=== PATIENT | male | born 1970 ===

== ENCOUNTER 2017-08-26 08:54 | Emergency (ER) | payer OTHER ==
[2017-08-26] MEDS ORDERED: cefTRIAXone IV 1 gm in Dextros 50 ML IV ONE (09:45)
[2017-08-26] MEDS ORDERED: Tmp-Smz 800 mg-160 mg DS Tab PO STA (09:47)
[2017-08-26] MEDS ORDERED: cefTRIAXone IV 1 gm in Dextros 50 ML IVPB ONE (10:05)
[2017-08-26 10:17] LABS: BASO # 0.1 K/uL (0.0-0.2); BASO % 0.6 % (0.0-2.0); EOS # 0.1 K/uL (0.0-0.7); HEMOGLOBIN 15.2 g/dL (12.0-18.0); LYMPH # 1.2 K/uL (1.0-4.3); LYMPH % 12.1 % (20.0-40.0); MEAN CELL VOLUME 83.7 fL (80.0-94.0); MEAN CORPUSCULAR HEMOGLOBIN 29.6 pg (27.0-31.0); MEAN CORPUSCULAR HGB CONC 35.4 g/dL (33.0-37.0); MEAN PLATELET VOLUME 7.7 fL (7.2-11.7); MONO # 1.1 K/uL (0.0-0.8); MONO % 10.2 % (0.0-10.0); NEUT # 7.9 K/uL (1.8-7.0); NEUT % 76.1 % (50.0-75.0); NRBC % 0.1 % (0.0-2.0); RBC 5.15 Mil/uL (4.40-5.90); RED CELL DISTRIBUTION WIDTH 13.5 % (11.5-14.5); WHITE BLOOD COUNT 10.3 K/uL (4.8-10.8)
[2017-08-26] MEDS ORDERED: Tmp-Smz 800 mg-160 mg DS Tab ONE (10:28)
[2017-08-26 10:37] LABS: ALB/GLOB RATIO 1.1 (1.0-2.1); ALBUMIN 4.3 g/dL (3.5-5.0); ALT/SGPT 30 U/L (21-72); AST/SGOT 32 U/L (17-59); BLOOD UREA NITROGEN 15 mg/dL (9-20); CALCIUM 9.1 mg/dl (8.6-10.4); GFR AFRICAN-AMERICAN > 60; GFR NON-AFRICAN AMERICAN > 60
[2017-08-26] MEDS ORDERED: Lidocaine 1% w Epi 1:100,000 Inj INJ ONE (10:38)
[2017-08-26] MEDS ORDERED: Lidocaine 2% MPF (5 ml) Inj ONE (10:41)
[2017-08-26] MEDS ORDERED: Bacitracin 500 Units/gm Oint Foilpak UD TOP ONE (11:07)
[2017-08-26] MEDS ORDERED: Bacitracin 500 Units/gm Oint Foilpak UD ONE (11:09)
--- NOTE | 2017-08-26 11:11 | C.PDOC ---
History Of Present Illness 46yo male, presents to ER with complaints of swelling and redness to his right lower leg for the past 4 days. Patient states the swelling might have been due to an ingrown hair. He had a similar episode 2 years ago as well when he had I& D and was discharged with antibiotics. He noticed minimal discharge from the wound yesterday. Patient denies any fever, bug bite, trauma, or weakness in his lower extremity. Time Seen by Provider: 08/26/17 09:21 Chief Complaint (Nursing): Abnormal Skin Integrity History Per: Patient History/Exam Limitations: no limitations Onset/Duration Of Symptoms: Days Current Symptoms Are (Timing): Still Present Location Of Injury: Right: Leg (lower) Quality Of Symptoms: Painful, Swollen Additional History Per: Patient Past Medical History Reviewed: Historical Data, Nursing Documentation, Vital Signs Vital Signs: Last Vital Signs Temp 99.5 F 08/26/17 11:24 Pulse 86 08/26/17 11:24 Resp 18 08/26/17 11:24 BP 137/75 08/26/17 11:24 Pulse Ox 98 08/26/17 13:26 - Medical History PMH: No Chronic Diseases Surgical History: No Surg Hx Family History: States: Unknown Family Hx - Social History Hx Alcohol Use: Yes Hx Substance Use: No - Immunization History Hx Tetanus Toxoid Vaccination: No Hx Influenza Vaccination: No Hx Pneumococcal Vaccination: No Review Of Systems Except As Marked, All Systems Reviewed And Found Negative. Constitutional: Negative for: Fever, Chills Musculoskeletal: Positive for: Other (swelling and redness to right lower leg) Physical Exam - Physical Exam Appears: Non-toxic, No Acute Distress Skin: Warm, Dry Head: Atraumatic, Normacephalic Eye(s): bilateral: Normal Inspection, EOMI Neck: Normal ROM, Supple Chest: Symmetrical Respiratory: No Accessory Muscle Use Extremity: Normal ROM, No Pedal Edema, No Calf Tenderness, No Deformity, Other ( 8cm area of erythema with central open wound on right lower leg, no streaking) Neurological/Psych: Oriented x3, Normal Motor, Normal Sensation ED Course And Treatment - Laboratory Results Result Diagrams: 08/26/17 10:09 08/26/17 10:09 O2 Sat by Pulse Oximetry: 98 (RA) Pulse Ox Interpretation: Normal Progress Note: Labs ordered, patient given Toradol IV for pain relief. Wound incised and drained, cultures sent. Patient given antibiotics in ER and instructed to complete the antibiotics course as prescribed. Wound cleaned, bacitracin applied and sterile dressing applied. Patient was instructed to return to ER in 2 days for wound check or sooner if symtpoms worsen. - Incision & Drainage Of Abscess Anesthesia: Lidocaine 1% Used During Procedure: Continuous Pulse Oximetry Prep Used: Sterile Water, Betadine Procedure: Incised W/Scalpel Blade#: (11), Drained Pus, Irrigated Cavity W/ Saline, Probed To Break Up Loculations, Cultures Obtained And Sent To Lab Disposition - Disposition Disposition: HOME/ ROUTINE Disposition Time: 11:07 Condition: STABLE Additional Instructions: Follow up with your primary medical doctor or clinic in 2-5 days for further evaluation. Take medications as prescribed. Return to the emergency department at any time if symptoms persist or worsen. Prescriptions: Cephalexin [cephalexin] 500 mg PO QID 7 Days cap Mupirocin 2% Ointment [Bactroban Ointment] 1 appl TP TID #1 tube Sulfamethoxazole/Trimethoprim [Bactrim DS 800 mg-160 mg] 1 tab PO BID #14 tab Instructions: Cellulitis (Skin Infection), Adult (DC) Forms: [employer] (Peruvian), Work Excuse - Clinical Impression Clinical Impression: Cellulitis, Abscess - PA / [employer] / Resident Statement MD/DO has reviewed & agrees with the documentation as recorded. - Scribe Statement The provider has reviewed the documentation as recorded by the Scribe (Barbra Cannon) Provider Attestation: All medical record entries made by the Scribe were at my direction and personally dictated by me. I have reviewed the chart and agree that the record accurately reflects my personal performance of the history, physical exam, medical decision making, and the department course for this patient. I have also personally directed, reviewed, and agree with the discharge instructions and disposition.
[2017-08-26 11:25] VITALS: BP 137/75; PULSE 86; RESP 18; TEMP 99.5
[2017-08-26 13:10] VITALS: O2SAT 98
== END 2017-08-26 11:26 | disposition home or self-care (01) ==
LOC: C.ER 08:54
DX: L03.115 Cellulitis of right lower limb (principal); L02.415 Cutaneous abscess of right lower limb
CPT/HCPCS: 10060; 80053; 85025; 87070; 87181; 96365; 96375; 99285; J0696; J1885

== ENCOUNTER 2017-10-08 13:20 | Emergency (ER) | payer SELFPAY ==
[2017-10-08 13:35] VITALS: BP 127/88; PULSE 72; RESP 16; TEMP 98; O2SAT 98
[2017-10-08] MEDS ORDERED: Erythromycin 0.5% Ophth Oint 1 APPLIC/3.5 G OD STA (13:52)
--- NOTE | 2017-10-08 13:55 | C.PDOC ---
History Of Present Illness 46-year-old male, presents to the emergency department with complaints of six- day duration of right eye discomfort. States he woke up with right eye redness and discomfort. He denies any swelling or changes in vision. Time Seen by Provider: 10/08/17 13:33 Chief Complaint (Nursing): Eye Problem History Per: Patient History/Exam Limitations: no limitations Current Symptoms Are (Timing): Still Present Past Medical History Reviewed: Historical Data, Nursing Documentation, Vital Signs Vital Signs: Last Vital Signs Temp 98 F 10/08/17 13:33 Pulse 72 10/08/17 13:33 Resp 16 10/08/17 13:33 BP 127/88 10/08/17 13:33 Pulse Ox 98 10/08/17 14:17 Family History: States: No Known Family Hx - Social History Hx Alcohol Use: Yes Hx Substance Use: No - Immunization History Hx Tetanus Toxoid Vaccination: No Hx Influenza Vaccination: No Hx Pneumococcal Vaccination: No Review Of Systems Constitutional: Negative for: Fever, Chills Eyes: Positive for: Redness. Negative for: Pain, Vision Change, Conjunctivae Inflammation Cardiovascular: Negative for: Chest Pain Respiratory: Negative for: Shortness of Breath Gastrointestinal: Negative for: Vomiting Skin: Negative for: Rash Physical Exam - Physical Exam Appears: Non-toxic, No Acute Distress Skin: Normal Color, Warm, Dry, No Rash Head: Atraumatic, Normacephalic Eye(s): bilateral: PERRL, EOMI, right: Other (subconjunctival hemorrhage) Nose: Normal Oral Mucosa: Moist Lips: Normal Appearing Neck: Normal ROM Chest: Symmetrical Respiratory: No Decreased Breath Sounds, No Accessory Muscle Use Extremity: Normal ROM, No Deformity Neurological/Psych: Oriented x3, Normal Speech ED Course And Treatment O2 Sat by Pulse Oximetry: 98 (RA) Pulse Ox Interpretation: Normal Medical Decision Making Medical Decision Making: (-)Fluorescein uptake See nurse note for visual acuity. Disposition Counseled Patient/Family Regarding: Studies Performed, Diagnosis - Disposition Referrals: Carlos Enrique Pina [Staff Provider] - Disposition: HOME/ ROUTINE Disposition Time: 13:53 Condition: STABLE Additional Instructions: follow up with Dr. Pina within 2 days call today to make an appointment take medication as prescribed return to hospital if symptoms worsens or progress Prescriptions: Erythromycin 0.5% [Ilytocin] 3.5 gm OD QID #1 tube Instructions: Subconjunctival Hemorrhage Forms: [facility] (Citizen Of [place]), General Discharge Instructions - Clinical Impression Clinical Impression: Subconjunctival hemorrhage - Scribe Statement The provider has reviewed the documentation as recorded by the Scribe (Maeve Castle) All medical record entries made by the Scribe were at my direction and personally dictated by me. I have reviewed the chart and agree that the record accurately reflects my personal performance of the history, physical exam, medical decision making, and the department course for this patient. I have also personally directed, reviewed, and agree with the discharge instructions and disposition.
[2017-10-08] MEDS ORDERED: Erythromycin 0.5% Ophth Oint 1 APPLIC/3.5 G ONE (13:57)
== END 2017-10-08 14:04 | disposition home or self-care (01) ==
LOC: C.ER 13:20
DX: H11.31 Conjunctival hemorrhage, right eye (principal)

== ENCOUNTER 2018-01-27 08:44 | Emergency (ER) | payer OTHER ==
[2018-01-27 08:56] VITALS: BMI 35.6
[2018-01-27 09:03] VITALS: BP 138/89; PULSE 84; RESP 18; TEMP 98.8; O2SAT 98
--- NOTE | 2018-01-27 09:07 | C.PDOC ---
History Of Present Illness 47 y/o male with PMH of recurrent leg abscesses, MRSA presents to the ED c/o left lower leg redness and pain x 4 days. Pt states he tried to squeeze the area but was unable to drain any fluid. States similar to prior abscesses, thinks he may have had an ingrown hair before the redness began. Denies fevers, chills, headache, N/V, numbness, paresthesias, ankle or knee pain. <Sadaf Marcus - Last Filed: 01/27/18 17:33> <Ekaterina Gallardo DO - Last Filed: 01/27/18 09:40> History Per: Patient History/Exam Limitations: no limitations Onset/Duration Of Symptoms: Days Current Symptoms Are (Timing): Still Present Severity: Mild Recent travel outside of the [place]: No <Sadaf Marcus - Last Filed: 01/27/18 17:33> Chief Complaint (Nursing): Lower Extremity Problem/Injury Past Medical History Vital Signs: Last Vital Signs Temp 98.8 F 01/27/18 08:57 Pulse 84 01/27/18 08:57 Resp 18 01/27/18 08:57 BP 138/89 01/27/18 08:57 Pulse Ox 98 01/27/18 09:35 <Ekaterina Gallardo DO - Last Filed: 01/27/18 09:40> Reviewed: Historical Data, Nursing Documentation, Vital Signs Vital Signs: Last Vital Signs Temp 98.8 F 01/27/18 08:57 Pulse 84 01/27/18 08:57 Resp 18 01/27/18 08:57 BP 138/89 01/27/18 08:57 Pulse Ox 98 01/27/18 08:57 - Medical History Other PMH: Abscesses Family History: States: Unknown Family Hx - Social History Hx Alcohol Use: Yes Hx Substance Use: No - Immunization History Hx Tetanus Toxoid Vaccination: No Hx Influenza Vaccination: No Hx Pneumococcal Vaccination: No <Sadaf Marcus - Last Filed: 01/27/18 17:33> Review Of Systems Except As Marked, All Systems Reviewed And Found Negative. Constitutional: Negative for: Fever, Chills Eyes: Negative for: Vision Change Cardiovascular: Negative for: Chest Pain, Palpitations, Light Headedness Respiratory: Negative for: Cough, Shortness of Breath Gastrointestinal: Negative for: Nausea, Vomiting, Abdominal Pain Genitourinary: Negative for: Dysuria, Frequency Musculoskeletal: Positive for: Leg Pain (left) Skin: Positive for: Other (swelling, redness to left lower leg). Negative for: Rash Neurological: Negative for: Weakness, Numbness, Headache, Dizziness <Sadaf Marcus - Last Filed: 01/27/18 17:33> Physical Exam - Physical Exam Appears: Well, Non-toxic, No Acute Distress Skin: Warm, Dry, Other (5cm x 4cm area of erythema over left lateral lower leg with [id number] area of fluctuance with surrounding induration; mild associated swelling) Head: Atraumatic, Normacephalic, No Tenderness Eye(s): bilateral: Normal Inspection, PERRL, EOMI Ear(s): Bilateral: Normal Nose: Normal Oral Mucosa: Moist Throat: Normal Neck: Normal, Normal ROM Cardiovascular: Rhythm Regular Respiratory: Normal Breath Sounds Gastrointestinal/Abdominal: Normal Exam Back: Normal Inspection Extremity: Normal ROM, Tenderness (left lateral lower leg), No Calf Tenderness, Capillary Refill (<2s), No Deformity, Swelling (left lateral lower leg; mild), Other (Full strength, sensation) Extremity: Left: Other (left: 5cm area of erythema ), Right: Normal Color And Temperature, Bilateral: Atraumatic, Normal ROM Pulses: Left Dorsalis Pedis: Normal, Right Dorsalis Pedis: Normal Neurological/Psych: Oriented x3, Normal Speech, Normal Cognition, Normal Cranial Nerves, Normal Motor, Normal Sensation Gait: Steady <Sadaf Marcus - Last Filed: 01/27/18 17:33> ED Course And Treatment O2 Sat by Pulse Oximetry: 98 <Sadaf Marcus - Last Filed: 01/27/18 17:33> - Incision & Drainage Of Abscess Anesthesia: Lidocaine 1% Prep Used: Sterile Water (chlorhexadine) Procedure: Incised W/Scalpel Blade#: (11), Drained Pus, Cultures Obtained And Sent To Lab (patient tolerated procedure well) <Ekaterina Gallardo DO - Last Filed: 01/27/18 09:40> Medical Decision Making Medical Decision Making: Initial Plan: * I&D * wound culture I&D performed by resident, Dr. Ekaterina Olivera, see procedure note; supervised by me. Pt tolerated the procedure well without complication. Wound covered with bacitracin and sterile dressing. Plan of care discussed with pt, who is stable for discharge home. A&Ox3, ambulating with steady gait. Strict instructions given regarding prescriptions, importance of followup and signs to return to ED. Impression: Cellulitis with Abscess Plan: Return in 2 days for wound check Bactrim, Keflex, Mupirocin Ointment Wound Care Return to ER sooner for new/worsening symptoms <Sadaf Marcus - Last Filed: 01/27/18 17:33> Disposition <Ekaterina Gallardo DO - Last Filed: 01/27/18 09:40> - Disposition Disposition Time: 09:14 <Sadaf Marcus - Last Filed: 01/27/18 17:33> - Disposition Referrals: [facility] [Outside] Disposition: HOME/ ROUTINE Condition: IMPROVED Additional Instructions: Retorno en 2 chapman para revisin de herida. Mantenga el marli limpia, seca y cubierta. Aplicar la pomada de mupirocina morenita vez al da. [place] los antibiticos segn lo prescrito; keflex cada 6 horas, bactrim cada 12 horas Regrese a la zachary de emergencias para cualquier sntoma nuevo / que empeora Prescriptions: Cephalexin [Keflex] 500 mg PO QID 7 Days #28 capsule Mupirocin 2% Ointment [Bactroban Ointment] 1 applic TD DAILY #1 tube Sulfamethoxazole/Trimethoprim [Bactrim DS 800 mg-160 mg] 1 tab PO Q12H #14 tab Instructions: Skin Abscess, Cellulitis (Skin Infection), Adult (DC) Forms: Gen Discharge Inst Angolan, [employer] (Angolan), Work Excuse Print Language: UPPER SORBIAN - Clinical Impression Clinical Impression: Cellulitis, Abscess
[2018-01-27] MEDS ORDERED: Lidocaine 1% (10 ml) Inj INFIL ONE (09:29)
[2018-01-27] MEDS ORDERED: Lidocaine Hydrochloride 5 ML INJ ONE (09:32)
[2018-01-27] MEDS ORDERED: Bacitracin Ointment 30 GM TUBE TOP STA (09:42)
[2018-01-27] MEDS ORDERED: Tmp-Smz 800 mg-160 mg DS Tab PO SCH (09:45)
[2018-01-27] MEDS ORDERED: Tmp-Smz 800 mg-160 mg DS Tab ONE (09:45)
[2018-01-27] MEDS ORDERED: Bacitracin 500 Units/gm Oint Foilpak UD ONE (09:51)
== END 2018-01-27 09:50 | disposition home or self-care (01) ==
LOC: C.ER 08:44
DX: L02.416 Cutaneous abscess of left lower limb (principal)